=== PATIENT | female | born 1990 | race Caucasian/White ===

== ENCOUNTER → 2016-09-26 | Outpatient (CLI) | payer BC ==
[2010-10-05 17:57] VITALS: BP 112/70
--- NOTE | 2016-09-27 09:32 | DI ---
XR KNEE CMPT 4 OR MORE VWS,09/26/2016 3:53 PM: Clinical History: Left knee pain of unspecified chronicity. Previous Exam: August 26, 2012 Findings: 4 views of the left knee are obtained, and demonstrate without fractures. There is a stable well-circumscribed hypodense mass involving the left medial tibial metadiaphysis wi th a narrow zone of transition and without associated soft tissue mass. Impression: Stable left proximal tibial nonossifying fibroma stable from the prior exam.
== END ==
LOC: ORTHO 16:07
PROVIDERS: ATTEND Orthopaedic Surgery
DX: M25.562 Pain in left knee (principal)
CPT/HCPCS: 73564

== ENCOUNTER → 2016-10-06 | Outpatient (CLI) | payer BC ==
[2010-10-05 17:57] VITALS: BP 112/70
--- NOTE | 2016-10-06 22:56 | DI ---
MRI LOW EXTREMITY JNT W/O CN,10/06/2016 2:06 PM: Clinical History: Locking of the left knee. Previous Exam: August 26, 2011 Findings: Multiplanar MR images are obtained through the left knee without contrast. Bony alignment is anatomic. No fractures are seen. There is some mild sclerosis of the lateral patell ar facet. There is a small knee joint effusion. The medial and lateral menisci are intact. The anterior and posterior cruciate ligaments are intact the medial and lateral collateral ligaments are also intact. The quadriceps and patellar tendons are intact. Signal within the musculature is unremarkable. The major vascular flow voids are unremarkable. There is a stable nonossifying fibroma involving the medial tibial metadiaphysis. Impression: A small knee joint effusion. Minimal chondromalacia within the anterior compartment not significantly changed from the prior exam. Stable non-ossifying fibroma involving the proximal left tibial metadiaphysis.
== END ==
LOC: MRI 13:59
PROVIDERS: ATTEND Orthopaedic Surgery
DX: M23.92 Unspecified internal derangement of left knee (principal); M25.462 Effusion, left knee; M94.262 Chondromalacia, left knee
CPT/HCPCS: 73721